=== PATIENT | female | born 2000 | race African-American/Black ===

== ENCOUNTER 2023-12-18 21:27 | Day surgery (SDC) | payer OTHER ==
[2023-12-18 22:00] VITALS: BMI 42.9
[2023-12-18] MEDS ORDERED: hydrALAZINE 20 MG/ML VIAL SLOW IVP PRN (22:32)
[2023-12-18 22:43] LABS: Bilirubin Neg (Negative); Blood, Urine Negative (Negative); Clarity Clear (Clear); Glucose, Urine (Dipstick) Normal (Negative); Ketone, Urine Negative (Negative); Leukocyte 25 (Negative); Nitrite Negative (Negative); Protein, Urine (Dipstick) 100 mg/dl (Neg-Trace); Specific Gravity, Urine 1.015 (1.005-1.030); pH, Urine 6.5 (5.0-9.0)
[2023-12-18 23:33] LABS: Bacteria/HPF Rare-Few HPF (None Seen); CAUTI Indications for Culture Pelvic or flank pain; Mucous/LPF 2+ LPF (<2+); RBC/HPF 0-3 HPF (0-3); Squamous Epithelial 0-3 HPF (0-3); WBC/HPF 0-3 HPF (0-3)
[2023-12-18 23:35] LABS: Urine Culture Reflex No No
== END 2023-12-19 00:15 | disposition home or self-care (01) ==
LOC: CSHLD/OP 21:27
PROVIDERS: ATTEND Obstetrics & Gynecology
DX: O46.93 Antepartum hemorrhage, unspecified, third trimester (principal); O10.913 Unspecified pre-existing hypertension complicating pregnancy, third trimester; O99.013 Anemia complicating pregnancy, third trimester; D64.9 Anemia, unspecified; O34.211 Maternal care for low transverse scar from previous cesarean delivery; O98.513 Other viral diseases complicating pregnancy, third trimester; B00.9 Herpesviral infection, unspecified; Z88.2 Allergy status to sulfonamides; Z79.82 Long term (current) use of aspirin; Z79.899 Other long term (current) drug therapy; Z3A.33 33 weeks gestation of pregnancy
CPT/HCPCS: 81001; 87480; 87510; 87660; 99284

== ENCOUNTER 2024-01-06 20:10 | Day surgery (SDC) | payer OTHER ==
[2024-01-06 20:44] VITALS: BMI 42.7
[2024-01-06] MEDS ORDERED: hydrALAZINE 20 MG/ML VIAL SLOW IVP PRN (21:14)
[2024-01-06] MEDS: Acetaminophen 500 MG TAB PO SCH (21:58)
[2024-01-06 22:12] LABS: Hematocrit 33.3 % (34.9-44.5); Hemoglobin 11.3 g/dL (12.0-15.5); Mean Corpuscular HGB CONC 33.9 g/dL (32.0-36.0); Mean Corpuscular Hemoglobin 24.5 pg (27.0-33.0); Mean Corpuscular Volume 72.1 fl (81.6-98.3); Mean Platelet Volume 10.5 fl (7.4-10.4); Platelet Count 315 10x3/uL (150-450); RBC Distribution Width 17.2 % (11.5-14.5); Red Blood Cell (RBC) Count 4.62 10x6/uL (3.90-5.03); White Blood Cell (WBC) Count 8.7 10x3/uL (3.5-10.5)
[2024-01-06 22:15] LABS: ALT (SGPT) 19 U/L (8-55); AST (SGOT) 16 U/L (5-34); Albumin 3.5 g/dL (3.5-5.0); Alkaline Phosphatase 124 U/L (40-110); Anion Gap 12 mmol/L (10-20); BUN (Urea Nitrogen) 7 mg/dL (7.0-18.7); Bilirubin, Total 0.3 mg/dL (0.2-1.2); Calc. Creatinine Clearance 264 mL/min (70-130); Calcium 9.2 mg/dL (7.8-10.44); Carbon Dioxide 20 mmol/L (22-29); Chloride 106 mmol/L (98-107); Estimated GFR 128; Globulin 3.3 g/dL (2.4-3.5); Glucose 97 mg/dL (70-105); Potassium 3.4 mmol/L (3.5-5.1); Protein, Total 6.8 g/dL (6.0-8.3); Sodium 135 mmol/L (136-145)
== END 2024-01-06 23:00 | disposition home or self-care (01) ==
LOC: CSHLD/OP 20:10
PROVIDERS: ATTEND Obstetrics & Gynecology
DX: O10.913 Unspecified pre-existing hypertension complicating pregnancy, third trimester (principal); Z3A.36 36 weeks gestation of pregnancy; Z88.2 Allergy status to sulfonamides; Z79.899 Other long term (current) drug therapy
CPT/HCPCS: 36415; 76819; 80053; 85027; 99284

== ENCOUNTER 2024-01-18 05:30 | Inpatient (IN) | payer OTHER ==
[2024-01-17 11:17] LABS: Hematocrit 35.5 % (34.9-44.5); Hemoglobin 12.4 g/dL (12.0-15.5); Platelet Count 292 10x3/uL (150-450)
[2024-01-17 11:58] LABS: Syphilis Antibody Nonreactive (Nonreactive); Syphilis Antibody Index 0.05 S/CO (<1.00 Non-Reactive)
[2024-01-17 12:00] LABS: HBSAg Index 0.27 S/CO (0-0.99); Hep B Surf Ag Non-Reactive S/CO (NonReactive)
[~2024-01-18 05:30] MED LIST: Bicitra 30 ML UDCUP PO PRN; CEFAZOLIN 2 GM in Sodium Chloride 0.9% 100 ML IVPB SCH; Famotidine/PF 20 mg/2ml Vial SLOW IVP PRN; Lactated Ringer's 1,000 ML IV SCH; Ondansetron PF 4 MG/2 ML Vial IVP PRN; Oxytocin 30 units/NS 500 ML 500 ML IV SCH; Promethazine HCl 25 MG/ML VIAL IM PRN; hydrALAZINE 20 MG/ML VIAL SLOW IVP PRN
[2024-01-18 05:56] VITALS: BMI 44.1
[2024-01-18] MEDS ORDERED: diphenhydrAMINE 50 MG/ML VIAL IVP PRN (07:18)
[2024-01-18] MEDS ORDERED: Promethazine HCl 25 MG/ML VIAL IM PRN ×2 (07:18→10:40)
[2024-01-18] MEDS ORDERED: Naloxone HCl 0.4 mg/ml Vial IVP PRN ×2 (07:18)
[2024-01-18] MEDS ORDERED: Ondansetron PF 4 MG/2 ML Vial IVP PRN ×3 (07:18→10:40)
[2024-01-18] MEDS ORDERED: Ketorolac Tromethamine 30 MG (1 mL) VIAL IVP PRN (07:18)
[2024-01-18] MEDS ORDERED: Naloxone HCl 0.4 mg/ml Vial IV PRN (07:18)
[2024-01-18] MEDS ORDERED: fentaNYL 50 mcg/mL 1 mL Vial SLOW IVP PRN (07:18)
[2024-01-18] MEDS ORDERED: Morphine 4 MG/ML VIAL SLOW IVP PRN (07:18)
[2024-01-18] MEDS ORDERED: Meperidine HCl/PF 25 MG (1 mL) VIAL SLOW IVP PRN (07:18)
[2024-01-18] MEDS ORDERED: Promethazine HCl 25 MG SUPP PR PRN (07:18)
[2024-01-18] MEDS ORDERED: Moisturizing Cream (Eucerin) 113 GM JAR TOP PRN (07:18)
[2024-01-18] MEDS ORDERED: Ketorolac Tromethamine 30 MG (1 mL) VIAL IVP SCH (07:30)
[2024-01-18] MEDS ORDERED: Communication Order-Pharmacy FS SCH (07:30)
[2024-01-18] MEDS ORDERED: diphenhydrAMINE 25 MG CAP PO PRN (10:40)
[2024-01-18] MEDS ORDERED: hydrALAZINE 20 MG/ML VIAL SLOW IVP PRN (10:40)
[2024-01-18] MEDS ORDERED: Zolpidem Tartrate 5 MG TAB PO PRN (10:40)
[2024-01-18] MEDS ORDERED: HYDROcodone/Acetaminophen 5/325 mg Tablet PO PRN (10:40)
[2024-01-18] MEDS ORDERED: Lanolin Ointment 7 GM TUBE TOP PRN (10:40)
[2024-01-18] MEDS ORDERED: Meperidine HCl/PF 25 MG (1 mL) VIAL IM PRN (10:40)
[2024-01-18] MEDS ORDERED: Oxytocin 30 units/NS 500 ML 500 ML IV SCH (10:40)
[2024-01-18] MEDS ORDERED: Simethicone Chewable 80 MG TAB PO PRN (10:40)
[2024-01-18] MEDS: Lactated Ringer's 1,000 ML IV SCH ×2 (12:32→12:33)
[2024-01-18] MEDS: Dexamethasone 4 mg/ml Vial ONE (12:32)
[2024-01-18] MEDS: CEFAZOLIN 2 GM VIAL ONE (12:32)
[2024-01-18] MEDS: Phenylephrine 40 MG/NS 250 ML 250 ML ONE (12:33)
[2024-01-18] MEDS: Phenylephrine 10 MG/ML VIAL ONE (12:33)
[2024-01-18] MEDS: Oxytocin 10 UNITS/ML VIAL ONE (12:33)
[2024-01-18] MEDS: Ondansetron PF 4 MG/2 ML Vial ONE (12:33)
[2024-01-18] MEDS: Morphine PF 10 MG/10 ML VIAL ONE (12:33)
[2024-01-18] MEDS: Tranexamic Acid 1,000 MG/10 ML VIAL ONE (12:33)
[2024-01-18] MEDS: Prenatal Vitamin 1 TAB PO SCH (12:34)
[2024-01-18] MEDS: Docusate 100 MG CAP PO SCH ×2 (12:34→21:03)
[2024-01-18] MEDS: NIFEdipine XL 90 MG ER.TAB PO SCH ×2 (12:34→21:02)
[2024-01-18] MEDS: Ketorolac Tromethamine 30 MG (1 mL) VIAL IVP PRN (13:34)
[2024-01-18] MEDS ORDERED: Ibuprofen 800 MG TAB PO SCH (14:00)
[2024-01-19 04:10] LABS: Hematocrit 25.8 % (34.9-44.5); Mean Corpuscular HGB CONC 34.9 g/dL (32.0-36.0); Mean Corpuscular Hemoglobin 26.1 pg (27.0-33.0); Mean Corpuscular Volume 74.8 fl (81.6-98.3); Mean Platelet Volume 10.6 fl (7.4-10.4); Platelet Count 263 10x3/uL (150-450); RBC Distribution Width 17.6 % (11.5-14.5); Red Blood Cell (RBC) Count 3.45 10x6/uL (3.90-5.03); White Blood Cell (WBC) Count 11.3 10x3/uL (3.5-10.5)
[2024-01-19] MEDS: Boostrix 0.5 ML (Tdap) VIAL (>/=7 yrs of age) IM ONE (08:02)
[2024-01-19] MEDS ORDERED: NIFEdipine XL 90 MG ER.TAB PO SCH (09:00)
[2024-01-19] MEDS: HYDROcodone/Acetaminophen 5/325 mg Tablet PO PRN (09:00)
[2024-01-19] MEDS: Prenatal Vitamin 1 TAB PO SCH (09:00)
[2024-01-19] MEDS: Ibuprofen 800 MG TAB PO SCH (20:54)
[2024-01-20 07:49] VITALS: BP 126/69; TEMP 98.2
== END 2024-01-20 11:15 | disposition home or self-care (01) | DRG 787 ==
LOC: CSHLD 05:30 → CSHPP 10:35
PROVIDERS: ADMIT Obstetrics & Gynecology; ATTEND Obstetrics & Gynecology
PROC: 10D00Z1 Extraction of Products of Conception, Low, Open Approach (ICD-10-PCS; principal; 2024-01-18)
DX: O16.4 Unspecified maternal hypertension, complicating childbirth (principal); D62 Acute posthemorrhagic anemia; Z3A.37 37 weeks gestation of pregnancy; Z37.0 Single live birth; O69.81X0 Labor and delivery complicated by cord around neck, without compression, not applicable or unspecified; O99.824 Streptococcus B carrier state complicating childbirth; O99.02 Anemia complicating childbirth
CPT/HCPCS: 51702; 85014; 85018; 85027; 85049; 86780; 86850; 86900; 86901; 87340; J1100; J1885; J2274; J2371; J2405; J2590